=== PATIENT | female | born 1955 | race Caucasian/White ===

== ENCOUNTER → 2024-03-01 04:00 | Outpatient (REF) | payer MEDICARE, OTHER, SELFPAY | LOC: DHSLP 04:00 | PROVIDERS: ATTENDING PHYSICIAN Otolaryngology Facial Plastic Surgery; FAMILY PHYSICIAN Internal Medicine Critical Care Medicine | DX: G47.33 Obstructive sleep apnea (adult) (pediatric) (principal) | CPT/HCPCS: 95806 ==

== ENCOUNTER → 2024-08-09 13:57 | Outpatient (REF) | payer MEDICARE, OTHER, SELFPAY | LOC: WDC 13:57 | PROVIDERS: ATTENDING PHYSICIAN Family Medicine | DX: Z12.31 Encounter for screening mammogram for malignant neoplasm of breast (principal) | CPT/HCPCS: 77063; 77067 ==